=== PATIENT | female | born 2000 | race Two or more races ===

== ENCOUNTER 2025-07-05 12:44 | Outpatient (CLI) | payer OTHER | END 2025-07-05 12:45 | disposition home or self-care (01) | LOC: PRENATAL 12:44 | PROVIDERS: ATTEND Obstetrics & Gynecology Maternal & Fetal Medicine | DX: O44.02 Complete placenta previa NOS or without hemorrhage, second trimester (principal); Z3A.27 27 weeks gestation of pregnancy ==